=== PATIENT | female | born 1990 | race Two or more races ===

== ENCOUNTER 2017-11-20 12:47 | Inpatient (IN) | payer SELFPAY ==
[2017-11-20] MEDS ORDERED: Atropine/Diphenoxylate 0.025-2.5 MG Tab PO ONE (13:51)
--- NOTE | 2017-11-20 19:02 | PCM.LDHP ---
L&D History of Present Illness - General Date of Service: 11/20/17 Admit Problem/Dx: Patient Status Order with Admit Dx/Problem 11/20/17 13:20 Patient Status [ADT] Routine Admission Diagnosis/Problem Admission Diagnosis/Problem 11/20/17 18:45 Labor Source of Information: Patient, EMS, EMS Notes Reviewed History Limitations: Reports: No Limitations - History of Present Illness Introduction:: Camryn is a 27yo at 38/2 who presents to labor and delivery in active labor. LMP was 02/25/17. CARISSA 12/02/17. She is group B strep negative, has no known allergies, and denies any surgical history. Blood type is O+. She is Rubella immune and negative for Hep B, HIV, Chlamydia, and Gonorrhea. She has received her Tdap and Influenza vaccinations. 1hr Glucose was within normal limits on 09/14/17 at 83mg/dl. Her platelets and BP have been stable throughout her . She does report a history of abnormal PAP smear LSIL which required colposcopy on 07/14/17. Too this point she has received standard care without complications. Present Illness Comments:: She is currently comfortable and desires an epidural. - Related Data Allergies/Adverse Reactions: Allergies Allergy/AdvReac Type Severity Reaction Status Date / Time No Known Allergies Allergy Verified 11/20/17 13:53 Home Medications: Home Meds Multivitamin [Multivitamins] 1 each PO DAILY 04/15/15 [History] . [No Known Home Meds] 06/07/16 [History] Past Medical History - Past Health History Medical/Surgical History: Denies Medical/Surgical History HEENT History: Reports: None Cardiovascular History: Reports: None Respiratory History: Reports: None Gastrointestinal History: Reports: None Genitourinary History: Reports: None [employer] History: Reports: None Musculoskeletal History: Reports: None Neurological History: Reports: None Psychiatric History: Reports: None Endocrine/Metabolic History: Reports: None Hematologic History: Reports: None Immunologic History: Reports: None Oncologic (Cancer) History: Reports: None Dermatologic History: Reports: None - Infectious Disease History Infectious Disease History: Reports: None - Past Surgical History Head Surgeries/Procedures: Reports: None HEENT Surgical History: Reports: None Cardiovascular Surgical History: Reports: None Respiratory Surgical History: Reports: None GI Surgical History: Reports: None Female Surgical History: Reports: None Endocrine Surgical History: Reports: None Neurological Surgical History: Reports: None Musculoskeletal Surgical History: Reports: None Dermatological Surgical History: Reports: None Social & Family History - Family History Cardiac: Reports: Hypertension Other Cardiac Family History: Mother HTN - Tobacco Use Smoking Status *Q: Never Smoker Tobacco Use Within Last Twelve Months: No Second Hand Smoke Exposure: No - Tobacco Core Measures Tobacco Use/Smoking Within Last 30 Days: No - Alcohol Use Alcohol Use History: No - Recreational Drug Use Recreational Drug Use: No Drug Use in Last 12 Months: No H&P Review of Systems - Review of Systems: Review Of Systems: ROS reveals no pertinent complaints other than HPI. General: Reports: No Symptoms HEENT: Reports: No Symptoms Pulmonary: Reports: No Symptoms Cardiovascular: Reports: No Symptoms Gastrointestinal: Reports: No Symptoms Genitourinary: Reports: No Symptoms Musculoskeletal: Reports: No Symptoms Skin: Reports: No Symptoms Psychiatric: Reports: No Symptoms Neurological: Reports: No Symptoms Hematologic/Lymphatic: Reports: No Symptoms Immunologic: Reports: No Symptoms L&D Exam - Exam Exam: See Below - Vital Signs Vital Signs: Last Vital Signs Temp 36.6 C 11/20/17 13:03 Pulse 85 11/20/17 13:03 Resp 20 11/20/17 13:03 BP 120/72 11/20/17 13:03 Pulse Ox Weight: 94.943 kg - OB Specific Fundal Height In cm: 38 Contraction Frequency (min): 2-3min Contraction Intensity: Moderate Movement: Active Heart Tones: Present Heart Tones per Min: 156 - Villasenor Score Villasenor Score Cervix Position: Midposition Villasenor Score Consistency: Soft Villasenor Score Effacement: >80% Villasenor Score Dilation: 3-4 cm Villasenor Score Infant's Station: -3 Villasenor Score Total: 8 - Exam General: Alert, Oriented HEENT: PERRLA, Conjunctiva Clear, EACs Clear, EOMI, Hearing Intact, Mucosa Moist & [place], Nares Patent, Normal Nasal Septum, Posterior Pharynx Clear, TMs Clear Neck: Supple, Trachea Midline Lungs: Clear to Auscultation, Normal Respiratory Effort Cardiovascular: Regular Rate, Regular Rhythm GI/Abdominal Exam: Normal Bowel Sounds, Soft, Non-Tender, No Organomegaly, No Distention, No Abnormal Bruit, No Mass, Pelvis Stable Rectal Exam: Normal Exam, Normal Rectal Tone Genitourinary: Normal external exam, Normal bimanual exam Back Exam: Normal Inspection, Full Range of Motion Extremities: Normal Inspection, Normal Range of Motion, Non-Tender, No Pedal Edema, Normal Capillary Refill Skin: Warm, Dry, Intact Neurological: Cranial Nerves Intact, Reflexes Equal Bilateral Psychiatric: Alert, Normal Affect, Normal Mood - Patient Data Lab Results Last 24 hrs: Laboratory Results - last 24 hr 11/20/17 11/20/17 11/20/17 Range/Units 13:10 13:10 13:35 WBC 8.18 (3.98-10.04) K/mm3 RBC 4.11 (3.98-5.22) M/mm3 Hgb 12.1 (11.2-15.7) gm/L Hct 36.4 (34.1-44.9) % MCV 88.6 (79.4-94.8) fl MCH 29.4 (25.6-32.2) pg MCHC 33.2 (32.2-35.5) g/dl RDW Std Deviation 42.8 (36.4-46.3) fL Plt Count 230 (182-369) K/mm3 MPV 10.1 (9.4-12.3) fl Neut % (Auto) 76.7 H (34.0-71.1) % Lymph % (Auto) 16.3 L (19.3-51.7) % [place] % (Auto) 6.1 (4.7-12.5) % Eos % (Auto) 0.1 L (0.7-5.8) Baso % (Auto) 0.1 (0.1-1.2) % Neut # (Auto) 6.27 H (1.56-6.13) K/mm3 Lymph # (Auto) 1.33 (1.18-3.74) K/mm3 [place] # (Auto) 0.50 H (0.24-0.36) K/mm3 Eos # (Auto) 0.01 L (0.04-0.36) K/mm3 Baso # (Auto) 0.01 (0.01-0.08) K/mm3 Sodium (136-145) mEq/L Potassium (3.5-5.1) mEq/L Chloride (98-107) mEq/L Carbon Dioxide (21-32) mEq/L Anion Gap (5-15) BUN (7-18) mg/dL Creatinine (0.55-1.02) mg/dL Est Cr Clr Drug Dosing mL/min Estimated GFR (MDRD) (>60) mL/min BUN/Creatinine Ratio (14-18) Glucose (74-106) mg/dL Calcium (8.5-10.1) mg/dL Urine Color Yellow (Yellow) Urine Appearance Clear (Clear) Urine pH 7.0 (5.0-8.0) Ur Specific [place] 1.020 (1.005-1.030) Urine Protein Negative (Negative) Urine Glucose (UA) Negative (Negative) Urine Ketones Negative (Negative) Urine Occult Blood Negative (Negative) Urine Nitrite Negative (Negative) Urine Bilirubin Negative (Negative) Urine Urobilinogen 0.2 (0.2-1.0) Ur Leukocyte Esterase Trace H (Negative) Urine RBC 0-5 (0-5) /hpf Urine WBC 0-5 (0-5) /hpf Ur Epithelial Cells 5-10 H (0-5) /hpf Urine Bacteria Moderate H (FEW) /hpf Urine Mucus Not seen (FEW) /hpf Membrane Rupture Negative 11/20/17 Range/Units 13:35 WBC (3.98-10.04) K/mm3 RBC (3.98-5.22) M/mm3 Hgb (11.2-15.7) gm/L Hct (34.1-44.9) % MCV (79.4-94.8) fl MCH (25.6-32.2) pg MCHC (32.2-35.5) g/dl RDW Std Deviation (36.4-46.3) fL Plt Count (182-369) K/mm3 MPV (9.4-12.3) fl Neut % (Auto) (34.0-71.1) % Lymph % (Auto) (19.3-51.7) % [place] % (Auto) (4.7-12.5) % Eos % (Auto) (0.7-5.8) Baso % (Auto) (0.1-1.2) % Neut # (Auto) (1.56-6.13) K/mm3 Lymph # (Auto) (1.18-3.74) K/mm3 [place] # (Auto) (0.24-0.36) K/mm3 Eos # (Auto) (0.04-0.36) K/mm3 Baso # (Auto) (0.01-0.08) K/mm3 Sodium 136 (136-145) mEq/L Potassium 3.8 (3.5-5.1) mEq/L Chloride 105 (98-107) mEq/L Carbon Dioxide 23 (21-32) mEq/L Anion Gap 11.8 (5-15) BUN 6 L (7-18) mg/dL Creatinine 0.5 L (0.55-1.02) mg/dL Est Cr Clr Drug Dosing 139.81 mL/min Estimated GFR (MDRD) > 60 (>60) mL/min BUN/Creatinine Ratio 12.0 L (14-18) Glucose 91 (74-106) mg/dL Calcium 8.4 L (8.5-10.1) mg/dL Urine Color (Yellow) Urine Appearance (Clear) Urine pH (5.0-8.0) Ur Specific [place] (1.005-1.030) Urine Protein (Negative) Urine Glucose (UA) (Negative) Urine Ketones (Negative) Urine Occult Blood (Negative) Urine Nitrite (Negative) Urine Bilirubin (Negative) Urine Urobilinogen (0.2-1.0) Ur Leukocyte Esterase (Negative) Urine RBC (0-5) /hpf Urine WBC (0-5) /hpf Ur Epithelial Cells (0-5) /hpf Urine Bacteria (FEW) /hpf Urine Mucus (FEW) /hpf Membrane Rupture Result Diagrams: 11/20/17 13:35 11/20/17 13:35 - Problem List (1) Labor established SNOMED Code(s): 53523894 ICD Code: SOQ1717 - Status: Acute Current Visit: Yes (2) Labor without complication SNOMED Code(s): 10051051 ICD Code: O80 - ENCOUNTER FOR FULL-TERM UNCOMPLICATED DELIVERY Status: Acute Current Visit: Yes (3) SNOMED Code(s): 37620497 ICD Code: Z33.1 - STATE, INCIDENTAL Status: Acute Current Visit : Yes Qualifiers: Weeks of gestation: 38 weeks Qualified Code(s): Z3A.38 - 38 weeks gestation of Problem List Initiated/Reviewed/Updated: Yes Orders Last 24hrs: Active Orders 24 hr Category Date Time Status Patient Status [ADT] Routine ADT 11/20/17 13:20 Active Non Stress Test [RC] PER UNIT ROUTINE Care 11/20/17 13:20 Active Up ad [place] [RC] ASDIRECTED Care 11/20/17 13:21 Active Vaginal Exam [RC] PRN Care 11/20/17 13:21 Active Vital Signs [RC] PER UNIT ROUTINE Care 11/20/17 13:20 Active Regular Diet [DIET] Diet 11/20/17 Lunch Active Resuscitation Status Routine Resus Stat 11/20/17 13:19 Ordered
[2017-11-20] MEDS ORDERED: Sodium Chloride 0.9% 10 ML Syringe FLUSH PRN (19:13)
[2017-11-20] MEDS ORDERED: Oxytocin/Lactated Ringers 10 UNIT/1,000 ML BAG IV SCH ×2 (19:15→21:15)
[2017-11-20] MEDS: Lactated Ringers 1,000 ML IV SCH ×2 (21:11→21:50)
[2017-11-20] MEDS ORDERED: diphenhydrAMINE 50 MG/ML SDV IVPUSH PRN (21:56)
[2017-11-20] MEDS ORDERED: fentaNYL 100 MCG/2 ML SDV EPIDUR PRN (21:56)
[2017-11-20] MEDS ORDERED: Ondansetron 4 MG/2 ML SDV IVPUSH PRN (21:56)
[2017-11-20] MEDS ORDERED: fentaNYL 100 MCG/2 ML SDV ONE (21:58)
[2017-11-20] MEDS ORDERED: Bupivacaine/fentaNYL/NS 100 ML Bag EPIDUR SCH (22:00)
--- NOTE | 2017-11-20 22:01 | PCM.PREANE ---
Preanesthetic Assessment - Procedure Proposed Procedure: ELOISE - Anesthesia/Transfusion/Family Hx Anesthesia History: No Prior Anesthesia Family History of Anesthesia Reaction: No Transfusion History: No Prior Transfusion(s) - Review of Systems General: No Symptoms Pulmonary: No Symptoms Cardiovascular: No Symptoms Gastrointestinal: No Symptoms, Hematochezia Neurological: No Symptoms Other: Reports: None - Physical Assessment NPO Status Date: 11/20/17 NPO Status Time: 16:00 Respiratory Rate: 20 Vital Signs: Last Vital Signs Temp 36.6 C 11/20/17 13:03 Pulse 85 11/20/17 13:03 Resp 20 11/20/17 13:03 BP 120/72 11/20/17 13:03 Pulse Ox Height: 1.6 m Weight: 94.943 kg ASA Class: 2 Mental Status: Alert & Oriented x3 Airway Class: Mallampati = 1 Dentition: Reports: Normal Dentition Thyro-Mental Finger Breadths: 3 Mouth Opening Finger Breadths: 3 ROM/Head Extension: Full Lungs: Clear to Auscultation, Normal Respiratory Effort Cardiovascular: Regular Rate, Regular Rhythm - Lab Values: Laboratory Last Values WBC 8.18 K/mm3 (3.98-10.04) 11/20/17 13:35 RBC 4.11 M/mm3 (3.98-5.22) 11/20/17 13:35 Hgb 12.1 gm/L (11.2-15.7) 11/20/17 13:35 Hct 36.4 % (34.1-44.9) 11/20/17 13:35 MCV 88.6 fl (79.4-94.8) 11/20/17 13:35 MCH 29.4 pg (25.6-32.2) 11/20/17 13:35 MCHC 33.2 g/dl (32.2-35.5) 11/20/17 13:35 RDW Std Deviation 42.8 fL (36.4-46.3) 11/20/17 13:35 Plt Count 230 K/mm3 (182-369) 11/20/17 13:35 MPV 10.1 fl (9.4-12.3) 11/20/17 13:35 Neut % (Auto) 76.7 % (34.0-71.1) H 11/20/17 13:35 Lymph % (Auto) 16.3 % (19.3-51.7) L 11/20/17 13:35 [place] % (Auto) 6.1 % (4.7-12.5) 11/20/17 13:35 Eos % (Auto) 0.1 (0.7-5.8) L 11/20/17 13:35 Baso % (Auto) 0.1 % (0.1-1.2) 11/20/17 13:35 Neut # (Auto) 6.27 K/mm3 (1.56-6.13) H 11/20/17 13:35 Lymph # (Auto) 1.33 K/mm3 (1.18-3.74) 11/20/17 13:35 [place] # (Auto) 0.50 K/mm3 (0.24-0.36) H 11/20/17 13:35 Eos # (Auto) 0.01 K/mm3 (0.04-0.36) L 11/20/17 13:35 Baso # (Auto) 0.01 K/mm3 (0.01-0.08) 11/20/17 13:35 Sodium 136 mEq/L (136-145) 11/20/17 13:35 Potassium 3.8 mEq/L (3.5-5.1) 11/20/17 13:35 Chloride 105 mEq/L (98-107) 11/20/17 13:35 Carbon Dioxide 23 mEq/L (21-32) 11/20/17 13:35 Anion Gap 11.8 (5-15) 11/20/17 13:35 BUN 6 mg/dL (7-18) L 11/20/17 13:35 Creatinine 0.5 mg/dL (0.55-1.02) L 11/20/17 13:35 Est Cr Clr Drug Dosing 139.81 mL/min 11/20/17 13:35 Estimated GFR (MDRD) > 60 mL/min (>60) 11/20/17 13:35 BUN/Creatinine Ratio 12.0 (14-18) L 11/20/17 13:35 Glucose 91 mg/dL (74-106) 11/20/17 13:35 Calcium 8.4 mg/dL (8.5-10.1) L 11/20/17 13:35 Urine Color Yellow (Yellow) 11/20/17 13:10 Urine Appearance Clear (Clear) 11/20/17 13:10 Urine pH 7.0 (5.0-8.0) 11/20/17 13:10 Ur Specific [place] 1.020 (1.005-1.030) 11/20/17 13:10 Urine Protein Negative (Negative) 11/20/17 13:10 Urine Glucose (UA) Negative (Negative) 11/20/17 13:10 Urine Ketones Negative (Negative) 11/20/17 13:10 Urine Occult Blood Negative (Negative) 11/20/17 13:10 Urine Nitrite Negative (Negative) 11/20/17 13:10 Urine Bilirubin Negative (Negative) 11/20/17 13:10 Urine Urobilinogen 0.2 (0.2-1.0) 11/20/17 13:10 Ur Leukocyte Esterase Trace (Negative) H 11/20/17 13:10 Urine RBC 0-5 /hpf (0-5) 11/20/17 13:10 Urine WBC 0-5 /hpf (0-5) 11/20/17 13:10 Ur Epithelial Cells 5-10 /hpf (0-5) H 11/20/17 13:10 Urine Bacteria Moderate /hpf (FEW) H 11/20/17 13:10 Urine Mucus Not seen /hpf (FEW) 11/20/17 13:10 Membrane Rupture Negative 11/20/17 13:10 - Allergies Allergies/Adverse Reactions: Allergies Allergy/AdvReac Type Severity Reaction Status Date / Time No Known Allergies Allergy Verified 11/20/17 13:53 - Blood Blood Available: No Product(s) Available: None - Anesthesia Plan Pre-Op Medication Ordered: None - Acknowledgements Anesthesia Type Planned: Epidural Pt an Appropriate Candidate for the Planned Anesthesia: Yes Alternatives and Risks of Anesthesia Discussed w Pt/Guardian: Yes Pt/Guardian Understands and Agrees with Anesthesia Plan: Yes PreAnesthesia Questionnaire - Past Health History Medical/Surgical History: Denies Medical/Surgical History HEENT History: Reports: None Cardiovascular History: Reports: None Respiratory History: Reports: None Gastrointestinal History: Reports: None Genitourinary History: Reports: None Other Genitourinary History: history of chlamydia 2010 [employer]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 Other OB/BYN History: abnormal PAP Musculoskeletal History: Reports: None Neurological History: Reports: None Psychiatric History: Reports: None Endocrine/Metabolic History: Reports: None Hematologic History: Reports: None Immunologic History: Reports: None Oncologic (Cancer) History: Reports: None Dermatologic History: Reports: None - Infectious Disease History Infectious Disease History: Reports: None - Past Surgical History Head Surgeries/Procedures: Reports: None HEENT Surgical History: Reports: None Cardiovascular Surgical History: Reports: None Respiratory Surgical History: Reports: None GI Surgical History: Reports: None Female Surgical History: Reports: None Endocrine Surgical History: Reports: None Neurological Surgical History: Reports: None Musculoskeletal Surgical History: Reports: None Dermatological Surgical History: Reports: None - SUBSTANCE USE Smoking Status *Q: Never Smoker Tobacco Use Within Last Twelve Months: No Second Hand Smoke Exposure: No Recreational Drug Use History: No - HOME MEDS Home Medications: Home Meds Multivitamin [Multivitamins] 1 each PO DAILY 04/15/15 [History] . [No Known Home Meds] 06/07/16 [History] - CURRENT (IN HOUSE) MEDS Current Meds: Current Medications Lactated Ringer's (Ringers, Lactated) 1,000 mls @ 100 mls/hr IV ASDIRECTED YONG Last Admin: 11/20/17 21:50 Dose: 999 mls/hr Oxytocin/Lactated Ringer's (Pitocin In Lr 10 Units/1,000 Ml) 10 unit in 1,000 mls @ 500 mls/hr IV TITRATE YONG PRN Reason: Protocol Oxytocin/Lactated Ringer's (Pitocin In Lr 10 Units/1,000 Ml) 10 unit in 1,000 mls @ 12 mls/hr IV TITRATE YONG; 2 MUNITS/MIN PRN Reason: Protocol Last Titration: 11/20/17 21:50 Dose: 4 munits/min, 24 mls/hr Sodium Chloride (Saline Flush) 10 ml FLUSH ASDIRECTED PRN PRN Reason: Keep Vein Open Discontinued Medications Diphenoxylate HCl/Atropine (Lomotil 0.025-2.5 Mg) 1 tab PO ONETIME ONE Stop: 11/20/17 13:52 Last Admin: 11/20/17 14:02 Dose: 1 tab
--- NOTE | 2017-11-21 02:09 | PCM.SN ---
- Free Text/Narrative Note: Camryn is a 27-year-old 5 now para 5005 female who was admitted at approximately 1800 hrs. on 01/18/2018 in early labor having spontaneously changed her cervix from 1-2 cm dilation to 3-4 cm dilation. She had been monitored since approximately 1400 hrs. She is admitted and monitored thereafter. Short time later artificial rupture membranes was undertaken and patient progressed to complete cervical dilation by approximately 0130 hrs. on . Some Pitocin augmentation was used later in the labor to facilitate increase in contraction frequency. At 0142 hrs. on 01/19/2018 the patient delivered a viable, prajapati, male infant with Apgars of 9 and 9, weight of 2980 g (6 pounds 9.1 ounces), 19 inches in length, in a direct occiput anterior position. The perineum was intact. The baby was placed on mom's abdomen, the cord was clamped 2. The father of the baby cut the cord. Cord blood was obtained. No suturing was necessary. The placenta delivered at 0145 hrs. in a Martinez presentation, appeared intact and complete and was discarded per patient desire. Pitocin was administered after the delivery of the baby to facilitate increase in uterine tone and reduce risk of bleeding. Estimated blood loss was 300 mL. The patient plans to bottlefeed. Condition: Good
[2017-11-21] MEDS ORDERED: Docusate Sodium 100 MG Cap PO PRN (02:12)
[2017-11-21] MEDS ORDERED: Witch Hazel Medicated Pads 100/Jar TOP PRN (02:12)
[2017-11-21] MEDS ORDERED: Benzocaine/Menthol 20%-0.5% Spray 56 GM Canister TOP PRN (02:12)
[2017-11-21] MEDS ORDERED: Acetaminophen 325 MG Tab PO PRN (02:12)
[2017-11-21] MEDS ORDERED: Lanolin 100% Cream 7 GM Tube TOP PRN (02:12)
[2017-11-21] MEDS: Ibuprofen 600 MG Tab PO PRN ×3 (02:33→19:21)
--- NOTE | 2017-11-21 08:19 | PCM.PN ---
- General Info Date of Service: 11/21/17 Admission Dx/Problem (Free Text): Routine Follow up Subjective Update: Camryn reports that she is doing well though she does say that she has not slept much up to this point. She does note that there is still some numbness in her left lower leg. She was educated that this is from the epidural and should go away. She does state that she has been able to urinate. She states that her pain is well controlled and has no other complaints. Functional Status: Reports: Pain Controlled, Tolerating Diet, Ambulating, Urinating - Review of Systems General: Reports: No Symptoms HEENT: Reports: No Symptoms Pulmonary: Reports: No Symptoms Cardiovascular: Reports: No Symptoms Gastrointestinal: Reports: No Symptoms Genitourinary: Reports: No Symptoms Skin: Reports: No Symptoms Neurological: Reports: Numbness Psychiatric: Reports: No Symptoms Systems Review Comment:: Numbness in left lower leg - Patient Data Vitals - Most Recent: Last Vital Signs Temp 36.6 C 11/20/17 13:03 Pulse 95 11/21/17 03:31 Resp 20 11/20/17 22:00 BP 119/61 11/21/17 03:31 Pulse Ox Weight - Most Recent: 94.943 kg I&O - Last 24 Hours: Intake & Output 11/20/17 11/21/17 11/21/17 22:59 06:59 14:59 Intake Total 1000 1975 Output Total 400 Balance 1000 1575 Lab Results Last 24 Hours: Laboratory Results - last 24 hr 11/20/17 11/20/17 11/20/17 Range/Units 13:10 13:10 13:35 WBC 8.18 (3.98-10.04) K/mm3 RBC 4.11 (3.98-5.22) M/mm3 Hgb 12.1 (11.2-15.7) gm/L Hct 36.4 (34.1-44.9) % MCV 88.6 (79.4-94.8) fl MCH 29.4 (25.6-32.2) pg MCHC 33.2 (32.2-35.5) g/dl RDW Std Deviation 42.8 (36.4-46.3) fL Plt Count 230 (182-369) K/mm3 MPV 10.1 (9.4-12.3) fl Neut % (Auto) 76.7 H (34.0-71.1) % Lymph % (Auto) 16.3 L (19.3-51.7) % [place] % (Auto) 6.1 (4.7-12.5) % Eos % (Auto) 0.1 L (0.7-5.8) Baso % (Auto) 0.1 (0.1-1.2) % Neut # (Auto) 6.27 H (1.56-6.13) K/mm3 Lymph # (Auto) 1.33 (1.18-3.74) K/mm3 [place] # (Auto) 0.50 H (0.24-0.36) K/mm3 Eos # (Auto) 0.01 L (0.04-0.36) K/mm3 Baso # (Auto) 0.01 (0.01-0.08) K/mm3 Sodium (136-145) mEq/L Potassium (3.5-5.1) mEq/L Chloride (98-107) mEq/L Carbon Dioxide (21-32) mEq/L Anion Gap (5-15) BUN (7-18) mg/dL Creatinine (0.55-1.02) mg/dL Est Cr Clr Drug Dosing mL/min Estimated GFR (MDRD) (>60) mL/min BUN/Creatinine Ratio (14-18) Glucose (74-106) mg/dL Calcium (8.5-10.1) mg/dL Urine Color Yellow (Yellow) Urine Appearance Clear (Clear) Urine pH 7.0 (5.0-8.0) Ur Specific [place] 1.020 (1.005-1.030) Urine Protein Negative (Negative) Urine Glucose (UA) Negative (Negative) Urine Ketones Negative (Negative) Urine Occult Blood Negative (Negative) Urine Nitrite Negative (Negative) Urine Bilirubin Negative (Negative) Urine Urobilinogen 0.2 (0.2-1.0) Ur Leukocyte Esterase Trace H (Negative) Urine RBC 0-5 (0-5) /hpf Urine WBC 0-5 (0-5) /hpf Ur Epithelial Cells 5-10 H (0-5) /hpf Urine Bacteria Moderate H (FEW) /hpf Urine Mucus Not seen (FEW) /hpf Membrane Rupture Negative 11/20/17 Range/Units 13:35 WBC (3.98-10.04) K/mm3 RBC (3.98-5.22) M/mm3 Hgb (11.2-15.7) gm/L Hct (34.1-44.9) % MCV (79.4-94.8) fl MCH (25.6-32.2) pg MCHC (32.2-35.5) g/dl RDW Std Deviation (36.4-46.3) fL Plt Count (182-369) K/mm3 MPV (9.4-12.3) fl Neut % (Auto) (34.0-71.1) % Lymph % (Auto) (19.3-51.7) % [place] % (Auto) (4.7-12.5) % Eos % (Auto) (0.7-5.8) Baso % (Auto) (0.1-1.2) % Neut # (Auto) (1.56-6.13) K/mm3 Lymph # (Auto) (1.18-3.74) K/mm3 [place] # (Auto) (0.24-0.36) K/mm3 Eos # (Auto) (0.04-0.36) K/mm3 Baso # (Auto) (0.01-0.08) K/mm3 Sodium 136 (136-145) mEq/L Potassium 3.8 (3.5-5.1) mEq/L Chloride 105 (98-107) mEq/L Carbon Dioxide 23 (21-32) mEq/L Anion Gap 11.8 (5-15) BUN 6 L (7-18) mg/dL Creatinine 0.5 L (0.55-1.02) mg/dL Est Cr Clr Drug Dosing 139.81 mL/min Estimated GFR (MDRD) > 60 (>60) mL/min BUN/Creatinine Ratio 12.0 L (14-18) Glucose 91 (74-106) mg/dL Calcium 8.4 L (8.5-10.1) mg/dL Urine Color (Yellow) Urine Appearance (Clear) Urine pH (5.0-8.0) Ur Specific [place] (1.005-1.030) Urine Protein (Negative) Urine Glucose (UA) (Negative) Urine Ketones (Negative) Urine Occult Blood (Negative) Urine Nitrite (Negative) Urine Bilirubin (Negative) Urine Urobilinogen (0.2-1.0) Ur Leukocyte Esterase (Negative) Urine RBC (0-5) /hpf Urine WBC (0-5) /hpf Ur Epithelial Cells (0-5) /hpf Urine Bacteria (FEW) /hpf Urine Mucus (FEW) /hpf Membrane Rupture Med Orders - Current: Current Medications Acetaminophen (Tylenol) 650 mg PO Q4H PRN PRN Reason: mild pain or fever Benzocaine/Menthol (Dermoplast Pain Relief [place]) 0 gm TOP ASDIRECTED PRN PRN Reason: Perineal Comfort Measure Last Admin: 11/21/17 02:34 Dose: 1 applic Docusate Sodium (Colace) 100 mg PO BID PRN PRN Reason: Constipation Emollient Ointment (Lansinoh Hpa) 0 gm TOP ASDIRECTED PRN PRN Reason: Sore Nipples Ibuprofen (Motrin) 600 mg PO Q4H PRN PRN Reason: Mild pain or fever Last Admin: 11/21/17 02:33 Dose: 600 mg Prenat Multivit/[place]/Iron/Folic Ac ( Plus Iron) 1 each PO DAILY [facility] Maria Dolores Silva (Tucks) 1 pad TOP ASDIRECTED PRN PRN Reason: Hemorrhoid pain Last Admin: 11/21/17 02:34 Dose: 1 applic Discontinued Medications Diphenhydramine HCl (Benadryl) 25 mg IVPUSH Q6H PRN PRN Reason: Pruritis Diphenoxylate HCl/Atropine (Lomotil 0.025-2.5 Mg) 1 tab PO ONETIME ONE Stop: 11/20/17 13:52 Last Admin: 11/20/17 14:02 Dose: 1 tab Fentanyl (Sublimaze) 100 mcg EPIDUR Q3H PRN PRN Reason: Pain Last Admin: 11/20/17 22:26 Dose: 100 mcg Fentanyl (Sublimaze) Confirm Administered Dose 100 mcg .ROUTE .STK-MED ONE Stop: 11/20/17 21:59 Last Admin: 11/20/17 22:09 Dose: Not Given Fentanyl/Bupivacaine HCl (Fentanyl/Bupivacaine/Ns 2 Mcg-0.125% 100 Ml) 100 ml EPIDUR ASDIRECTED [facility] Last Admin: 11/20/17 22:25 Dose: 100 ml Lactated Ringer's (Ringers, Lactated) 1,000 mls @ 100 mls/hr IV ASDIRECTED YONG Last Infusion: 11/20/17 22:37 Dose: 100 mls/hr Oxytocin/Lactated Ringer's (Pitocin In Lr 10 Units/1,000 Ml) 10 unit in 1,000 mls @ 500 mls/hr IV TITRATE YONG PRN Reason: Protocol Oxytocin/Lactated Ringer's (Pitocin In Lr 10 Units/1,000 Ml) 10 unit in 1,000 mls @ 12 mls/hr IV TITRATE YONG; 2 MUNITS/MIN PRN Reason: Protocol Last Titration: 11/21/17 01:43 Dose: 0 munits/min, 0 mls/hr Ondansetron HCl (Zofran) 4 mg IVPUSH ONETIME PRN PRN Reason: Nausea/Vomiting Sodium Chloride (Saline Flush) 10 ml FLUSH ASDIRECTED PRN PRN Reason: Keep Vein Open - Exam General: Alert, Oriented HEENT: Pupils Equal, Pupils Reactive, EOMI, Mucous Membr. Moist/[place] Neck: Supple Lungs: Clear to Auscultation, Normal Respiratory Effort Cardiovascular: Regular Rate, Regular Rhythm GI/Abdominal Exam: Normal Bowel Sounds, Soft, Non-Tender, No Organomegaly, No Distention, No Abnormal Bruit, No Mass, Pelvis Stable (Female) Exam: Normal External Exam, Normal Speculum Exam, Normal Bimanual Exam Back Exam: Normal Inspection, Full Range of Motion Extremities: Normal Inspection, Normal Range of Motion, Non-Tender, No Pedal Edema, Normal Capillary Refill Skin: Warm, Dry, Intact Wound/Incisions: Healing Well Neurological: No New Focal Deficit Psy/Mental Status: Alert, Normal Affect, Normal Mood Physical Findings Comments:: mild numbness in left lower leg residual from epidural - Problem List & Annotations (1) Labor established SNOMED Code(s): 93337491 Code(s): CRG6697 - Status: Acute Current Visit: No (2) Labor without complication SNOMED Code(s): 58341772 Code(s): O80 - ENCOUNTER FOR FULL-TERM UNCOMPLICATED DELIVERY Status: Acute Current Visit: No (3) SNOMED Code(s): 06979895 Code(s): Z33.1 - STATE, INCIDENTAL Status: Acute Current Visit: No Qualifiers: Weeks of gestation: 38 weeks Qualified Code(s): Z3A.38 - 38 weeks gestation of (4) Routine follow-up SNOMED Code(s): 648582277 Code(s): Z39.2 - ENCOUNTER FOR ROUTINE FOLLOW-UP Status: Acute Current Visit: Yes - Problem List Review Problem List Initiated/Reviewed/Updated: Yes - Assessment Assessment:: Routine follow up - Plan Plan:: Continue to monitor per floor protocol
[2017-11-21] MEDS: Prenatal Multivitamin with Calcium/Folic Acid/Iron Tab PO SCH (09:17)
--- NOTE | 2017-11-21 12:51 | PCM48HPAN ---
Post Anesthesia Note - EVALUATION WITHIN 48HRS OF ANESTHETIC Vital Signs in Normal Range: Yes Patient Participated in Evaluation: Yes Respiratory Function Stable: Yes Airway Patent: Yes Cardiovascular Function Stable: Yes Hydration Status Stable: Yes Pain Control Satisfactory: Yes Nausea and Vomiting Control Satisfactory: Yes Mental Status Recovered: Yes
[2017-11-21] MEDS ORDERED: Bupivacaine 0.25% 10 ML SDV ONE (22:22)
[2017-11-22] MEDS: Ibuprofen 600 MG Tab PO PRN ×2 (00:06→04:15)
--- NOTE | 2017-11-22 08:58 | PCM.DCSUM1 ---
Discharge Summary - Hospital Course Free Text/Narrative:: Camryn is a 27-year-old 5 now para 5005 female who was admitted at approximately 1800 hrs. on 01/18/2018 in early labor having spontaneously changed her cervix from 1-2 cm dilation to 3-4 cm dilation. She had been monitored since approximately 1400 hrs. She is admitted and monitored thereafter. Short time later artificial rupture membranes was undertaken and patient progressed to complete cervical dilation by approximately 0130 hrs. on . Some Pitocin augmentation was used later in the labor to facilitate increase in contraction frequency. At 0142 hrs. on 01/19/2018 the patient delivered a viable, prajapati, male with Apgars of 9 and 9, weight of 2980 g (6 pounds 9.1 ounces), 19 inches in length, in a direct occiput anterior position. The perineum was intact. The baby was placed on mom's abdomen, the cord was clamped 2. The father of the baby cut the cord. Cord blood was obtained. No suturing was necessary. The placenta delivered at 0145 hrs. in a [place] presentation, appeared intact and complete and was discarded per patient desire. Pitocin was administered after the delivery of the baby to facilitate increase in uterine tone and reduce risk of bleeding. Estimated blood loss was 300 mL. The patient plans to bottlefeed. patient is doing well. She is ambulatory and well, bottle feeding. She is voiding well. She desires discharge home. - Discharge Data Discharge Date: 11/22/17 Discharge Disposition: DC/Tfer to Hospice - Home 50 Condition: Good - Patient Instructions Diet: Regular Diet as Tolerated Activity: As Tolerated (No intercourse tampons until bleeding stops.) Driving: May Drive Today Showering/Bathing: May Shower Showering/Bathing, Other: May take a bath Notify Provider of: Fever, Increased Pain, Swelling and Redness, Nausea and/or Vomiting - Discharge Plan Home Medications: Home Meds Acetaminophen [Tylenol] 650 mg PO Q4H PRN tablet 11/22/17 [Rx] Ibuprofen [IJD: Ibuprofen] 600 mg PO Q4H PRN tablet 11/22/17 [Rx] Referrals: Daisha Bowser MD [Primary Care Provider] - (Return to clinic Dr. Bowser6 weeks) - Discharge Summary/Plan Comment DC Time >30 min.: No Discharge Summary/Plan Comment: Discharge instructions: 1. Discharge home 2. Diet, activity and follow-up discussed with patient. Recommend nursing diet with increased calories and calcium. 3. Precautions given concern increased pain, bleeding, temperature, signs/ symptoms of DVT/PE. 4. Medications per home medication was printed, discussed with and given to the patient. 5. Return to clinic[facility]Dr. Edgar at [facility] in 6 weeks. Diagnosis: Term -delivered Condition: Good - Patient Data Vitals - Most Recent: Last Vital Signs Temp 36.4 C 11/22/17 04:10 Pulse 82 11/22/17 04:10 Resp 14 11/22/17 04:10 BP 136/86 11/22/17 04:10 Pulse Ox 100 11/22/17 04:10 Weight - Most Recent: 94.943 kg I&O - Last 24 hours: Intake & Output 11/21/17 11/22/17 11/22/17 22:59 06:59 14:59 Intake Total 180 Balance 180 Lab Results - Last 24 hrs: Laboratory Results - last 24 hr 11/22/17 Range/Units 06:00 WBC 8.23 (3.98-10.04) K/mm3 RBC 3.56 L (3.98-5.22) M/mm3 Hgb 10.3 L (11.2-15.7) gm/L Hct 32.0 L (34.1-44.9) % MCV 89.9 (79.4-94.8) fl MCH 28.9 (25.6-32.2) pg MCHC 32.2 (32.2-35.5) g/dl RDW Std Deviation 43.8 (36.4-46.3) fL Plt Count 206 (182-369) K/mm3 MPV 10.2 (9.4-12.3) fl Med Orders - Current: Current Medications Acetaminophen (Tylenol) 650 mg PO Q4H PRN PRN Reason: mild pain or fever Last Admin: 11/21/17 13:06 Dose: 650 mg Benzocaine/Menthol (Dermoplast Pain Relief [place]) 0 gm TOP ASDIRECTED PRN PRN Reason: Perineal Comfort Measure Last Admin: 11/21/17 02:34 Dose: 1 applic Docusate Sodium (Colace) 100 mg PO BID PRN PRN Reason: Constipation Emollient Ointment (Lansinoh Hpa) 0 gm TOP ASDIRECTED PRN PRN Reason: Sore Nipples Ibuprofen (Motrin) 600 mg PO Q4H PRN PRN Reason: Mild pain or fever Last Admin: 11/22/17 04:15 Dose: 600 mg Prenat Multivit/[place]/Iron/Folic Ac ( Plus Iron) 1 each PO DAILY YONG Last Admin: 11/21/17 09:17 Dose: 1 each Witch Shira (Tucks) 1 pad TOP ASDIRECTED PRN PRN Reason: Hemorrhoid pain Last Admin: 11/21/17 02:34 Dose: 1 applic Discontinued Medications Diphenhydramine HCl (Benadryl) 25 mg IVPUSH Q6H PRN PRN Reason: Pruritis Diphenoxylate HCl/Atropine (Lomotil 0.025-2.5 Mg) 1 tab PO ONETIME ONE Stop: 11/20/17 13:52 Last Admin: 11/20/17 14:02 Dose: 1 tab Fentanyl (Sublimaze) 100 mcg EPIDUR Q3H PRN PRN Reason: Pain Last Admin: 11/20/17 22:26 Dose: 100 mcg Fentanyl (Sublimaze) Confirm Administered Dose 100 mcg .ROUTE .STK-MED ONE Stop: 11/20/17 21:59 Last Admin: 11/20/17 22:09 Dose: Not Given Fentanyl/Bupivacaine HCl (Fentanyl/Bupivacaine/Ns 2 Mcg-0.125% 100 Ml) 100 ml EPIDUR ASDIRECTED YONG Last Admin: 11/20/17 22:25 Dose: 100 ml Lactated Ringer's (Ringers, Lactated) 1,000 mls @ 100 mls/hr IV ASDIRECTED YONG Last Infusion: 11/20/17 22:37 Dose: 100 mls/hr Oxytocin/Lactated Ringer's (Pitocin In Lr 10 Units/1,000 Ml) 10 unit in 1,000 mls @ 500 mls/hr IV TITRATE YONG PRN Reason: Protocol Oxytocin/Lactated Ringer's (Pitocin In Lr 10 Units/1,000 Ml) 10 unit in 1,000 mls @ 12 mls/hr IV TITRATE YONG; 2 MUNITS/MIN PRN Reason: Protocol Last Titration: 11/21/17 01:43 Dose: 0 munits/min, 0 mls/hr Ondansetron HCl (Zofran) 4 mg IVPUSH ONETIME PRN PRN Reason: Nausea/Vomiting Sodium Chloride (Saline Flush) 10 ml FLUSH ASDIRECTED PRN PRN Reason: Keep Vein Open *Q Meaningful Use (DIS) - VTE *Q VTE Criteria *Q: - Stroke *Q Stroke Criteria *Q: - AMI *Q AMI Criteria *Q:
[2017-11-22 09:49] VITALS: BP 120/62
[2017-11-22] MEDS: Prenatal Multivitamin with Calcium/Folic Acid/Iron Tab PO SCH (11:03)
== END 2017-11-22 10:40 | disposition hospice, home (50) | DRG 775 ==
LOC: JD.OBCHECK 12:47 → JD.OB 12:47 → JD.OBCHECK 19:13 → OBSVTOIN 11-21 01:42 → JD.OB 11-21 02:00
PROVIDERS: ADMIT Obstetrics & Gynecology; ATTEND Obstetrics & Gynecology
PROC: 10E0XZZ Delivery of Products of Conception, External Approach (ICD-10-PCS; principal; 2017-11-21)
PROC: 10907ZC Drainage of Amniotic Fluid, Therapeutic from Products of Conception, Via Natural or Artificial Opening (ICD-10-PCS; 2017-11-21)
PROC: 00HU33Z Insertion of Infusion Device into Spinal Canal, Percutaneous Approach (ICD-10-PCS; 2017-11-21)
PROC: 3E0R3BZ Introduction of Anesthetic Agent into Spinal Canal, Percutaneous Approach (ICD-10-PCS; 2017-11-21)
DX: O80 Encounter for full-term uncomplicated delivery (principal); Z3A.38 38 weeks gestation of pregnancy; Z37.0 Single live birth
CPT/HCPCS: 36415; 51702; 59409; 80048; 81001; 84112; 85025; 85027; A9270-GY; J2590; J3010; J7120

== ENCOUNTER 2019-01-22 00:05 | Observation (INO) | payer BC ==
[2019-01-22 00:37] VITALS: BP 132/70
[2019-01-22] MEDS ORDERED: Lactated Ringers 1,000 ML IV SCH (01:00)
[2019-01-22] MEDS ORDERED: Lidocaine 1% 50 ML MDV INJECT ONE (02:13)
[2019-01-22] MEDS ORDERED: Ondansetron 4 MG/2 ML SDV IVPUSH PRN (02:13)
[2019-01-22] MEDS ORDERED: Calcium Carbonate 500 MG Tab.Chew PO PRN (02:13)
[2019-01-22] MEDS ORDERED: Sodium Chloride 0.9% 10 ML Syringe FLUSH PRN (02:13)
[2019-01-22] MEDS ORDERED: Nalbuphine 20 MG/ML 1 ML Syringe IVPUSH PRN (02:13)
[2019-01-22] MEDS ORDERED: Oxytocin/Lactated Ringers 10 UNIT/1,000 ML BAG IV SCH (02:15)
--- NOTE | 2019-01-22 07:45 | PCM.SN ---
- Free Text/Narrative Note: 0745 S: Patient is a 28 y/o at 37 0/7 wks who presents for concerns of contractions. Started yesterday PM. Got to L&D around midnight. Initially marysol and being able to be picked up on monitor. Able, however, to fall asleep and rest comfortably in the early AM hours. Doing well now. Notes a little bit of tightening. O: Gen: NAD Ab: Soft, non tender Ext: No edema FHT: 130, moderate variability, + accelerations, one isolated variable at 0415 - remainder of 8 hours of tracing without deceleration TOCO: This am quiet SVE: For my exam external os is maybe open to 3 cm (last nursing exam notes 3-4 on cervix check), however, difficulty reaching all the way up to internal os. Internal os seems to be 2.5 / 25% / -2 A/P: Reviewed with patient that would not want to augment labor at this time given gestational age and that she is without medical complication. It is challenging that she lives 1.5 hours from hospital, however, I would recommend either continued monitoring or discharge to home if she feels comfortable. She would like discharge to home. Asked her to return with any increase in contractions. Carmina Patten MD
== END 2019-01-22 07:57 | disposition home or self-care (01) ==
LOC: JD.OBCHECK 00:05 → JD.OB 00:05 → JD.OBCHECK 02:13 → JD.OB 02:14
PROVIDERS: ADMIT Obstetrics & Gynecology; ATTEND Obstetrics & Gynecology
DX: O47.1 False labor at or after 37 completed weeks of gestation (principal); Z3A.37 37 weeks gestation of pregnancy
CPT/HCPCS: 36415; 59025; 85025; 86592; 86850; 86900; 86901; G0378

== ENCOUNTER 2019-01-28 17:12 | Inpatient (IN) | payer BC ==
[2019-01-28] MEDS ORDERED: Nalbuphine 20 MG/ML 1 ML Syringe IVPUSH PRN (19:04)
[2019-01-28] MEDS ORDERED: Sodium Chloride 0.9% 10 ML Syringe FLUSH PRN (19:04)
[2019-01-28] MEDS ORDERED: Oxytocin/Lactated Ringers 10 UNIT/1,000 ML BAG IV SCH ×2 (19:15)
[2019-01-28] MEDS: Lactated Ringers 1,000 ML IV SCH ×2 (19:28→22:28)
[2019-01-28] MEDS ORDERED: ePHEDrine 50 MG/ML SDV IVPUSH PRN (20:01)
[2019-01-28] MEDS ORDERED: Ondansetron 4 MG/2 ML SDV IVPUSH PRN (20:01)
[2019-01-28] MEDS ORDERED: fentaNYL/Bupivacaine-NS 2 MCG/ML-0.125%/PF 100 ML Bag EPIDUR PRN (20:01)
[2019-01-28] MEDS ORDERED: fentaNYL 100 MCG/2 ML SDV EPIDUR PRN (20:01)
--- NOTE | 2019-01-28 20:01 | PCM.PREANE ---
Preanesthetic Assessment - Anesthesia/Transfusion/Family Hx Anesthesia History: Prior Anesthesia Without Reaction (just epidural.) Family History of Anesthesia Reaction: No Transfusion History: No Prior Transfusion(s) Intubation History: Unknown - Review of Systems General: No Symptoms Pulmonary: No Symptoms Cardiovascular: No Symptoms Gastrointestinal: No Symptoms Neurological: No Symptoms Other: Reports: None - Physical Assessment NPO Status Date: 01/28/19 NPO Status Time: 20:00 Pulse: 88 O2 Sat by Pulse Oximetry: 99 Respiratory Rate: 16 Blood Pressure: 118/65 Temperature: 37.3 C Vital Signs: Last Vital Signs Temp 37.3 C 01/28/19 17:36 Pulse 88 01/28/19 17:36 Resp 16 01/28/19 17:36 BP 118/65 01/28/19 17:36 Pulse Ox Height: 1.57 m Weight: 90.265 kg ASA Class: 2 Mental Status: Alert & Oriented x3 Airway Class: Mallampati = 2 Dentition: Reports: Normal Dentition, Caries Thyro-Mental Finger Breadths: 3 Mouth Opening Finger Breadths: 3 ROM/Head Extension: Full Lungs: Clear to Auscultation, Normal Respiratory Effort Cardiovascular: Regular Rate, Regular Rhythm, No Murmurs - Lab Values: Laboratory Last Values WBC 9.48 K/mm3 (3.98-10.04) 01/28/19 19:19 RBC 4.02 M/mm3 (3.98-5.22) 01/28/19 19:19 Hgb 12.3 gm/L (11.2-15.7) 01/28/19 19:19 Hct 36.5 % (34.1-44.9) 01/28/19 19:19 MCV 90.8 fl (79.4-94.8) 01/28/19 19:19 MCH 30.6 pg (25.6-32.2) 01/28/19 19:19 MCHC 33.7 g/dl (32.2-35.5) 01/28/19 19:19 RDW Std Deviation 43.6 fL (36.4-46.3) 01/28/19 19:19 Plt Count 208 K/mm3 (182-369) 01/28/19 19:19 MPV 9.8 fl (9.4-12.3) 01/28/19 19:19 Membrane Rupture Negative 01/28/19 17:30 Above labs reviewed and noted and within acceptable ranges to proceed with epidural if desired. - Allergies Allergies/Adverse Reactions: Allergies Allergy/AdvReac Type Severity Reaction Status Date / Time No Known Allergies Allergy Verified 01/22/19 00:37 - Anesthesia Plan Pre-Op Medication Ordered: None - Acknowledgements Anesthesia Type Planned: Epidural Pt an Appropriate Candidate for the Planned Anesthesia: Yes Alternatives and Risks of Anesthesia Discussed w Pt/Guardian: Yes Pt/Guardian Understands and Agrees with Anesthesia Plan: Yes PreAnesthesia Questionnaire - Past Health History Medical/Surgical History: Denies Medical/Surgical History HEENT History: Reports: None Cardiovascular History: Reports: None Respiratory History: Reports: None Gastrointestinal History: Reports: None Genitourinary History: Reports: None Other Genitourinary History: history of chlamydia 2009 [employer] History: Reports: , Other (See Below) Other OB/BYN History: abnormal PAP, possible HPV Musculoskeletal History: Reports: None Neurological History: Reports: None Psychiatric History: Reports: None Endocrine/Metabolic History: Reports: None Hematologic History: Reports: None Immunologic History: Reports: None Oncologic (Cancer) History: Reports: None Dermatologic History: Reports: None - Infectious Disease History Infectious Disease History: Reports: Human Papilloma Virus (HPV) - Past Surgical History Head Surgeries/Procedures: Reports: None HEENT Surgical History: Reports: None Cardiovascular Surgical History: Reports: None Respiratory Surgical History: Reports: None GI Surgical History: Reports: None Female Surgical History: Reports: None Endocrine Surgical History: Reports: None Neurological Surgical History: Reports: None Musculoskeletal Surgical History: Reports: None Dermatological Surgical History: Reports: None - HOME MEDS Home Medications: Home Meds Pnv No.122/Iron/Folic Acid [ Multi Tablet] 1 each PO DAILY 01/22/19 [ History] - CURRENT (IN HOUSE) MEDS Current Meds: Current Medications Lactated Ringer's (Ringers, Lactated) 1,000 mls @ 100 mls/hr IV ASDIRECTED [facility] Last Admin: 01/28/19 19:28 Dose: 100 mls/hr Oxytocin/Lactated Ringer's (Pitocin In Lr 10 Units/1,000 Ml) 10 unit in 1,000 mls @ 100 mls/hr IV .CONTINUOUS YONG Oxytocin/Lactated Ringer's (Pitocin In Lr 10 Units/1,000 Ml) 10 unit in 1,000 mls @ 12 mls/hr IV TITRATE YONG; Protocol Last Admin: 01/28/19 19:27 Dose: 2 munits/min, 12 mls/hr Nalbuphine HCl (Nubain) 10 mg IVPUSH Q2H PRN PRN Reason: pain Sodium Chloride (Saline Flush) 10 ml FLUSH ASDIRECTED PRN PRN Reason: Keep Vein Open
[2019-01-28] MEDS ORDERED: Phenylephrine 1 MG in Sodium Chloride 0.9% 10 ML IV SCH (20:15)
[2019-01-28] MEDS ORDERED: Bupivacaine 0.25% 10 ML SDV ONE (22:00)
[2019-01-28] MEDS ORDERED: Lidocaine 1.5% with EPINEPHrine 1:200,000 5 ML Amp ONE (22:00)
--- NOTE | 2019-01-29 02:53 | PCM.LDHP ---
L&D History of Present Illness - General Date of Service: 01/28/19 Admit Problem/Dx: Patient Status Order with Admit Dx/Problem 01/28/19 19:59 Patient Status [ADT] Routine Admission Diagnosis/Problem Admission Diagnosis/Problem Source of Information: Patient, RN Notes Reviewed History Limitations: Reports: No Limitations - History of Present Illness Introduction:: 28 year old at 37w6d here for a labor check. [place] a gush of fluid earlier tonight that soaked her pad and underwear. Here negative amnisure but positive pooling and on examination can feel hair which supports SROM. PNC with myself without complications. Pain Score: 7 - Related Data Allergies/Adverse Reactions: Allergies Allergy/AdvReac Type Severity Reaction Status Date / Time No Known Allergies Allergy Verified 01/22/19 00:37 Home Medications: Home Meds Pnv No.122/Iron/Folic Acid [ Multi Tablet] 1 each PO DAILY 01/22/19 [ History] Past Medical History - Past Health History Medical/Surgical History: Denies Medical/Surgical History HEENT History: Reports: None Other HEENT History: wears glasses Cardiovascular History: Reports: None Respiratory History: Reports: None Gastrointestinal History: Reports: None Genitourinary History: Reports: None Other Genitourinary History: history of chlamydia 2009 [employer] History: Reports: , Other (See Below) Other OB/BYN History: abnormal PAP, possible HPV Musculoskeletal History: Reports: None Neurological History: Reports: None Psychiatric History: Reports: None Endocrine/Metabolic History: Reports: None Hematologic History: Reports: None Immunologic History: Reports: None Oncologic (Cancer) History: Reports: None Dermatologic History: Reports: None - Infectious Disease History Infectious Disease History: Reports: Human Papilloma Virus (HPV) - Past Surgical History Head Surgeries/Procedures: Reports: None HEENT Surgical History: Reports: None Cardiovascular Surgical History: Reports: None Respiratory Surgical History: Reports: None GI Surgical History: Reports: None Female Surgical History: Reports: None Endocrine Surgical History: Reports: None Neurological Surgical History: Reports: None Musculoskeletal Surgical History: Reports: None Dermatological Surgical History: Reports: None Social & Family History - Family History Family Medical History: Noncontributory Cardiac: Reports: Hypertension Other Cardiac Family History: Mother HTN - Tobacco Use Smoking Status *Q: Never Smoker - Caffeine Use Caffeine Use: Reports: None - Recreational Drug Use Recreational Drug Use: No H&P Review of Systems - Review of Systems: Review Of Systems: See Below General: Reports: No Symptoms HEENT: Reports: No Symptoms Pulmonary: Reports: No Symptoms Cardiovascular: Reports: No Symptoms Gastrointestinal: Reports: No Symptoms Genitourinary: Reports: No Symptoms Musculoskeletal: Reports: No Symptoms Skin: Reports: No Symptoms Psychiatric: Reports: No Symptoms Neurological: Reports: No Symptoms Hematologic/Lymphatic: Reports: No Symptoms Immunologic: Reports: No Symptoms L&D Exam - Exam Exam: See Below - Vital Signs Vital Signs: Last Vital Signs Temp 37.3 C 01/28/19 20:07 Pulse 88 01/28/19 20:07 Resp 16 01/28/19 20:07 BP 118/65 01/28/19 20:07 Pulse Ox 99 01/28/19 20:07 Weight: 90.265 kg - OB Specific Contraction Intensity: Moderate to Strong Movement: Active Heart Tones: Present Presentation: Vertex - Villasenor Score Villasenor Score Cervix Position: Midposition Villasenor Score Consistency: Soft Villasenor Score Effacement: >80% Villasenor Score Dilation: 3-4 cm Villasenor Score Infant's Station: -3 Villasenor Score Total: 8 - Exam General: Alert, Oriented HEENT: PERRLA, Conjunctiva Clear, EACs Clear, EOMI, Hearing Intact, Mucosa Moist & [place], Nares Patent, Normal Nasal Septum, Posterior Pharynx Clear, TMs Clear Neck: Supple, Trachea Midline Lungs: Clear to Auscultation, Normal Respiratory Effort Cardiovascular: Regular Rate, Regular Rhythm GI/Abdominal Exam: Normal Bowel Sounds, Soft, Non-Tender, No Organomegaly, No Distention, No Abnormal Bruit, No Mass, Pelvis Stable Rectal Exam: Normal Exam, Normal Rectal Tone Extremities: Normal Inspection, Normal Range of Motion, Non-Tender, No Pedal Edema, Normal Capillary Refill Skin: Warm, Dry, Intact Neurological: Cranial Nerves Intact, Reflexes Equal Bilateral Psychiatric: Alert, Normal Affect, Normal Mood - Patient Data Lab Results Last 24 hrs: Laboratory Results - last 24 hr 01/28/19 01/28/19 01/28/19 Range/Units 17:30 19:19 19:19 WBC 9.48 (3.98-10.04) K/mm3 RBC 4.02 (3.98-5.22) M/mm3 Hgb 12.3 (11.2-15.7) gm/L Hct 36.5 (34.1-44.9) % MCV 90.8 (79.4-94.8) fl MCH 30.6 (25.6-32.2) pg MCHC 33.7 (32.2-35.5) g/dl RDW Std Deviation 43.6 (36.4-46.3) fL Plt Count 208 (182-369) K/mm3 MPV 9.8 (9.4-12.3) fl PT (9.5-12.1) SECONDS INR APTT (24-31) SECONDS Fibrinogen (187-446) mg/dL Membrane Rupture Negative RPR (NONREACTIVE) Blood Type O POSITIVE Gel Antibody Screen Negative 01/28/19 01/29/19 01/29/19 Range/Units 19:19 00:35 00:35 WBC (3.98-10.04) K/mm3 RBC (3.98-5.22) M/mm3 Hgb (11.2-15.7) gm/L Hct (34.1-44.9) % MCV (79.4-94.8) fl MCH (25.6-32.2) pg MCHC (32.2-35.5) g/dl RDW Std Deviation (36.4-46.3) fL Plt Count (182-369) K/mm3 MPV (9.4-12.3) fl PT 10.3 (9.5-12.1) SECONDS INR 0.94 APTT 27 (24-31) SECONDS Fibrinogen 442 (187-446) mg/dL Membrane Rupture RPR Non-reactive (NONREACTIVE) Blood Type Gel Antibody Screen Result Diagrams: 01/28/19 19:19 Problem List Initiated/Reviewed/Updated: Yes Orders Last 24hrs: Active Orders 24 hr Category Date Time Status Patient Status [ADT] Routine ADT 01/28/19 19:59 Active Activity as Tolerated [RC] PFP Care 01/28/19 19:05 Active Communication Order [RC] ASDIRECTED Care 01/28/19 19:05 Active Heart Tones [RC] ASDIRECTED Care 01/28/19 19:05 Active Non Stress Test [RC] PER UNIT ROUTINE Care 01/28/19 19:05 Active Notify Provider [RC] ASDIRECTED Care 01/28/19 20:01 Active Notify Provider [RC] PFP Care 01/28/19 19:05 Active Notify Provider [RC] PRN Care 01/28/19 19:05 Active Oxygen Therapy [RC] ASDIRECTED Care 01/28/19 20:01 Active Peripheral IV Care [RC] . DIRECTED Care 01/28/19 19:05 Active Pulse Oximetry [RC] ASDIRECTED Care 01/28/19 20:01 Active Up ad Paige [RC] ASDIRECTED Care 01/28/19 17:37 Active Vaginal Exam [RC] PRN Care 01/28/19 17:38 Active Vital Signs [RC] PER UNIT ROUTINE Care 01/28/19 19:05 Active Regular Diet [DIET] Diet 01/28/19 Dinner Active Lactated Ringers [Ringers, Lactated] 1,000 ml Med 01/28/19 19:15 Active IV ASDIRECTED Nalbuphine [Nubain] Med 01/28/19 19:04 Active 10 mg IVPUSH Q2H PRN Ondansetron [Zofran] Med 01/28/19 20:01 Active 4 mg IVPUSH ONETIME PRN Oxytocin/Lactated Ringers [Pitocin in LR 10 Units/1,000 Med 01/28/19 19:15 Active ML] 10 unit in 1,000 ml IV .CONTINUOUS Oxytocin/Lactated Ringers [Pitocin in LR 10 Units/1,000 Med 01/28/19 19:15 Active ML] 10 unit in 1,000 ml IV TITRATE Phenylephrine [Segundo-Synephrine] 1 mg Med 01/28/19 20:15 Active Sodium Chloride 0.9% [Normal Saline] 10 ml IV TITRATE Sodium Chloride 0.9% [Saline Flush] Med 01/28/19 19:04 Active 10 ml FLUSH ASDIRECTED PRN ePHEDrine [ePHEDrine sulfate] Med 01/28/19 20:01 Active 5 mg IVPUSH ASDIRECTED PRN fentaNYL [Sublimaze] Med 01/28/19 20:01 Active 100 mcg EPIDUR Q3H PRN fentaNYL/Bupivacaine/NS/PF [qwtweJSM-Vymnn-HX 2 MCG/ML- Med 01/28/19 20:01 Active 0.125%] 100 ml EPIDUR ASDIRECTED PRN Electronic Heart Tones Ext w TOCO [WOMSER] Oth 01/28/19 19:05 Ordered Routine Electronic Heart Tones Internal [WOMSER] Per Unit Oth 01/28/19 19:05 Ordered Routine Peripheral IV Insertion Adult [OM.PC] Routine Oth 01/28/19 19:05 Ordered Resuscitation Status Routine Resus Stat 01/28/19 17:36 Ordered Medication Orders Ephedrine Sulfate (Ephedrine Sulfate) 5 mg IVPUSH ASDIRECTED PRN PRN Reason: Hypotension Fentanyl (Sublimaze) 100 mcg EPIDUR Q3H PRN PRN Reason: Pain Last Admin: 01/28/19 22:00 Dose: 100 mcg Fentanyl/Bupivacaine HCl (Abqavecp-Keuuk-Cq 2 Mcg/Ml-0.125%) 100 ml EPIDUR ASDIRECTED PRN PRN Reason: Pain Last Admin: 01/28/19 22:00 Dose: 100 ml Lactated Ringer's (Ringers, Lactated) 1,000 mls @ 100 mls/hr IV ASDIRECTED YONG Last Admin: 01/28/19 22:28 Dose: 100 mls/hr Infusion: 01/28/19 22:28 Dose: 100 mls/hr Admin: 01/28/19 19:28 Dose: 100 mls/hr Oxytocin/Lactated Ringer's (Pitocin In Lr 10 Units/1,000 Ml) 10 unit in 1,000 mls @ 100 mls/hr IV .CONTINUOUS YONG Oxytocin/Lactated Ringer's (Pitocin In Lr 10 Units/1,000 Ml) 10 unit in 1,000 mls @ 12 mls/hr IV TITRATE YONG; Protocol Last Titration: 01/29/19 02:01 Dose: 4 munits/min, 24 mls/hr Titration: 01/29/19 01:31 Dose: 2 munits/min, 12 mls/hr Titration: 01/29/19 00:29 Dose: 0 munits/min, 0 mls/hr Titration: 01/29/19 00:16 Dose: 18 munits/min, 108 mls/hr Titration: 01/28/19 23:36 Dose: 16 munits/min, 96 mls/hr Titration: 01/28/19 23:06 Dose: 14 munits/min, 84 mls/hr Titration: 01/28/19 22:36 Dose: 12 munits/min, 72 mls/hr Titration: 01/28/19 21:44 Dose: 10 munits/min, 60 mls/hr Titration: 01/28/19 21:10 Dose: 8 munits/min, 48 mls/hr Titration: 01/28/19 20:36 Dose: 6 munits/min, 36 mls/hr Titration: 01/28/19 20:04 Dose: 4 munits/min, 24 mls/hr Admin: 01/28/19 19:27 Dose: 2 munits/min, 12 mls/hr Phenylephrine HCl 1 mg/ Sodium (Chloride) 10.1 mls @ 1 mls/sec IV TITRATE YONG; Protocol Nalbuphine HCl (Nubain) 10 mg IVPUSH Q2H PRN PRN Reason: pain Ondansetron HCl (Zofran) 4 mg IVPUSH ONETIME PRN PRN Reason: Nausea/Vomiting Sodium Chloride (Saline Flush) 10 ml FLUSH ASDIRECTED PRN PRN Reason: Keep Vein Open Assessment/Plan Comment:: 28 year old here with labor. Augment as needed. Anticipate unless otherwise indicated
--- NOTE | 2019-01-29 02:55 | PCM.PNLD ---
Labor Progress Note - VS & Meds Vital Signs: Last Vital Signs Temp 37.3 C 01/28/19 20:07 Pulse 88 01/28/19 20:07 Resp 16 01/28/19 20:07 BP 118/65 01/28/19 20:07 Pulse Ox 99 01/28/19 20:07 Active Medications: Current Medications Ephedrine Sulfate (Ephedrine Sulfate) 5 mg IVPUSH ASDIRECTED PRN PRN Reason: Hypotension Fentanyl (Sublimaze) 100 mcg EPIDUR Q3H PRN PRN Reason: Pain Last Admin: 01/28/19 22:00 Dose: 100 mcg Fentanyl/Bupivacaine HCl (Vzbxxpyr-Wzboi-Te 2 Mcg/Ml-0.125%) 100 ml EPIDUR ASDIRECTED PRN PRN Reason: Pain Last Admin: 01/28/19 22:00 Dose: 100 ml Lactated Ringer's (Ringers, Lactated) 1,000 mls @ 100 mls/hr IV ASDIRECTED YONG Last Admin: 01/28/19 22:28 Dose: 100 mls/hr Oxytocin/Lactated Ringer's (Pitocin In Lr 10 Units/1,000 Ml) 10 unit in 1,000 mls @ 100 mls/hr IV .CONTINUOUS YONG Oxytocin/Lactated Ringer's (Pitocin In Lr 10 Units/1,000 Ml) 10 unit in 1,000 mls @ 12 mls/hr IV TITRATE YONG; Protocol Last Titration: 01/29/19 02:01 Dose: 4 munits/min, 24 mls/hr Phenylephrine HCl 1 mg/ Sodium (Chloride) 10.1 mls @ 1 mls/sec IV TITRATE YONG; Protocol Nalbuphine HCl (Nubain) 10 mg IVPUSH Q2H PRN PRN Reason: pain Ondansetron HCl (Zofran) 4 mg IVPUSH ONETIME PRN PRN Reason: Nausea/Vomiting Sodium Chloride (Saline Flush) 10 ml FLUSH ASDIRECTED PRN PRN Reason: Keep Vein Open - Uterine Contractions Contraction Intensity: Moderate to Strong Uterine Resting Tone: Soft - Monitoring Heart Rate (FHR) Baseline: 135 Heart Rate (FHR) Variability: Moderate (6-25 bmp) Accelerations: Prolonged Accelerations (>2x10 min) Decelerations: Early Strip Review: Category I - Vaginal Exam Dilation (cm): 9 Effacement (Percent): 100 Station: -2 - Labor Progress (Free Text) Labor Progress: Progressing well. Has had some gushes of blood over night. Anticipate
--- NOTE | 2019-01-29 03:41 | PCM.SN ---
- Free Text/Narrative Note: Stage I - patient presented with uterine irritability and probable rupture of membranes. Had moderate amount of bleeding throughout the labor course consistent with small abruption. Progressed to complete with overall reassuring heart tones. Stage II - spontaneous vaginal delivery of viable female weight 2550 grams Apgars 8 and 9 at 0304. Head delivered in controlled manner over intact perineum body and shoulders followed immediately without difficulty. Large gush of bloody amniotic fluid followed baby. Positive cry placed on maternal abdomen cord clamped and cut and to warmer. Stage III - spontaneous vaginal delivery of intact placenta with three-vessel cord estimated blood loss 400 not including bleeding through delivery and labor. No lacerations
[2019-01-29] MEDS ORDERED: Witch Hazel Medicated Pads 40/Jar TOP PRN (09:13)
[2019-01-29] MEDS ORDERED: Docusate Sodium 100 MG Cap PO PRN (09:13)
[2019-01-29] MEDS ORDERED: Benzocaine/Menthol 20%-0.5% Spray 56 GM Canister TOP PRN (09:14)
[2019-01-29] MEDS: Ibuprofen 600 MG Tab PO PRN ×3 (09:28→21:24)
[2019-01-29] MEDS ORDERED: Acetaminophen 325 MG Tab PO PRN (13:40)
[2019-01-30] MEDS: Acetaminophen/oxyCODONE 325-5 MG Tab PO PRN ×2 (00:11→07:41)
[2019-01-30] MEDS: Ibuprofen 600 MG Tab PO PRN (03:58)
[2019-01-30 07:57] VITALS: BP 121/80
--- NOTE | 2019-01-30 09:43 | PCM.DCSUM1 ---
Discharge Summary - Hospital Course Brief History: Admitted in labor. Unremarkable course. Diagnosis: Stroke: No - Discharge Data Discharge Date: 01/30/19 Discharge Disposition: Home, Self-Care 01 Condition: Good - Patient Instructions Diet: Usual Diet as Tolerated Activity: No Strenuous Activities Driving: May Drive Today Showering/Bathing: May Shower Notify Provider of: Fever, Increased Pain, Swelling and Redness, Drainage, Nausea and/or Vomiting - Discharge Plan *PRESCRIPTION DRUG MONITORING PROGRAM REVIEWED*: No *COPY OF PRESCRIPTION DRUG MONITORING REPORT IN PATIENT DEWEY: No Home Medications: Home Meds Pnv No.122/Iron/Folic Acid [ Multi Tablet] 1 each PO DAILY 01/22/19 [ History] Referrals: Daisha Elias MD [Primary Care Provider] - - Discharge Summary/Plan Comment DC Time >30 min.: No - General Info Date of Service: 01/30/19 Functional Status: Reports: Pain Controlled - Review of Systems General: Reports: No Symptoms HEENT: Reports: No Symptoms Pulmonary: Reports: No Symptoms Cardiovascular: Reports: No Symptoms Gastrointestinal: Reports: No Symptoms Genitourinary: Reports: No Symptoms Musculoskeletal: Reports: No Symptoms Skin: Reports: No Symptoms Neurological: Reports: No Symptoms Psychiatric: Reports: No Symptoms - Patient Data Vitals - Most Recent: Last Vital Signs Temp 36.3 C 01/30/19 07:38 Pulse 75 01/30/19 07:38 Resp 16 01/30/19 07:38 BP 121/80 01/30/19 07:38 Pulse Ox 97 01/30/19 07:38 Weight - Most Recent: 90.265 kg I&O - Last 24 hours: Intake & Output 01/29/19 01/30/19 01/30/19 22:59 06:59 14:59 Intake Total 820 Balance 820 Med Orders - Current: Current Medications Acetaminophen (Tylenol) 650 mg PO Q4H PRN PRN Reason: Pain Last Admin: 01/29/19 13:55 Dose: 650 mg Benzocaine/Menthol (Dermoplast Pain Relief [place]) 0 gm TOP ASDIRECTED PRN PRN Reason: Pain Last Admin: 01/29/19 09:28 Dose: 1 applic Docusate Sodium (Colace) 100 mg PO BID PRN PRN Reason: Constipation Last Admin: 01/30/19 00:11 Dose: 100 mg Ibuprofen (Motrin) 600 mg PO Q6H PRN PRN Reason: Mild pain or fever Last Admin: 01/30/19 03:58 Dose: 600 mg Oxycodone/Acetaminophen (Percocet 325-5 Mg) 1 tab PO Q6H PRN PRN Reason: Pain Last Admin: 01/30/19 07:41 Dose: 1 tab Witch Shira (Tucks) 1 pad TOP ASDIRECTED PRN PRN Reason: Pain Last Admin: 01/29/19 09:28 Dose: 1 box Discontinued Medications Ephedrine Sulfate (Ephedrine Sulfate) 5 mg IVPUSH ASDIRECTED PRN PRN Reason: Hypotension Fentanyl (Sublimaze) 100 mcg EPIDUR Q3H PRN PRN Reason: Pain Last Admin: 01/28/19 22:00 Dose: 100 mcg Fentanyl/Bupivacaine HCl (Hewsskmx-Cpbxt-Cq 2 Mcg/Ml-0.125%) 100 ml EPIDUR ASDIRECTED PRN PRN Reason: Pain Last Admin: 01/28/19 22:00 Dose: 100 ml Lactated Ringer's (Ringers, Lactated) 1,000 mls @ 100 mls/hr IV ASDIRECTED YONG Last Admin: 01/28/19 22:28 Dose: 100 mls/hr Oxytocin/Lactated Ringer's (Pitocin In Lr 10 Units/1,000 Ml) 10 unit in 1,000 mls @ 100 mls/hr IV .CONTINUOUS YONG Last Admin: 01/29/19 04:21 Dose: 100 mls/hr Oxytocin/Lactated Ringer's (Pitocin In Lr 10 Units/1,000 Ml) 10 unit in 1,000 mls @ 12 mls/hr IV TITRATE YONG; Protocol Last Titration: 01/29/19 03:05 Dose: 500 mls/hr Phenylephrine HCl 1 mg/ Sodium (Chloride) 10.1 mls @ 1 mls/sec IV TITRATE YONG; Protocol Nalbuphine HCl (Nubain) 10 mg IVPUSH Q2H PRN PRN Reason: pain Ondansetron HCl (Zofran) 4 mg IVPUSH ONETIME PRN PRN Reason: Nausea/Vomiting Sodium Chloride (Saline Flush) 10 ml FLUSH ASDIRECTED PRN PRN Reason: Keep Vein Open - Exam General: Reports: Alert, Oriented HEENT: Reports: Pupils Equal, Pupils Reactive, EOMI, Mucous Membr. Moist/[place] Neck: Reports: Supple Lungs: Reports: Clear to Auscultation, Normal Respiratory Effort Cardiovascular: Reports: Regular Rate, Regular Rhythm GI/Abdominal Exam: Normal Bowel Sounds, Soft, Non-Tender, No Organomegaly, No Distention, No Abnormal Bruit, No Mass, Pelvis Stable Back Exam: Reports: Normal Inspection, Full Range of Motion Extremities: Normal Inspection, Normal Range of Motion, Non-Tender, No Pedal Edema, Normal Capillary Refill Skin: Reports: Warm, Dry, Intact Wound/Incisions: Reports: Healing Well Neurological: Reports: No New Focal Deficit Psy/Mental Status: Reports: Alert, Normal Affect, Normal Mood
== END 2019-01-30 10:00 | disposition home or self-care (01) | DRG 560 ==
LOC: JD.OBCHECK 17:12 → JD.OB 17:12 → JD.OBCHECK 19:59 → OBSVTOIN 01-29 03:04 → JD.OB 01-29 03:05
PROVIDERS: ADMIT Obstetrics & Gynecology; ATTEND Obstetrics & Gynecology
PROC: 00HU33Z Insertion of Infusion Device into Spinal Canal, Percutaneous Approach (ICD-10-PCS; 2019-01-28)
PROC: 3E0R3BZ Introduction of Anesthetic Agent into Spinal Canal, Percutaneous Approach (ICD-10-PCS; 2019-01-28)
PROC: 10E0XZZ Delivery of Products of Conception, External Approach (ICD-10-PCS; principal; 2019-01-29)
DX: O45.93 Premature separation of placenta, unspecified, third trimester (principal); O98.32 Other infections with a predominantly sexual mode of transmission complicating childbirth; A63.0 Anogenital (venereal) warts; Z3A.37 37 weeks gestation of pregnancy; Z37.0 Single live birth
CPT/HCPCS: 01967; 36415; 51702; 59025; 59409; 84112; 85027; 85384; 85610; 85730; 86592; 86850; 86900; 86901; A9270-GY; J2590; J3010; J3490; J7120

== ENCOUNTER 2021-11-25 06:53 | Inpatient (IN) | payer BC ==
[~2021-11-25 06:53] MED LIST: Lidocaine 1.5% with EPINEPHrine 1:200,000 5 ML Amp ONE
[2021-11-25] MEDS ORDERED: FLU Vacc QS2021-22 36MOS UP/PF 60 MCG/0.5 ML Syringe IM ONE (08:15)
[2021-11-25] MEDS ORDERED: Nalbuphine 10 MG/1 ML Vial IVPUSH PRN (08:25)
[2021-11-25] MEDS ORDERED: Sodium Chloride 0.9% 10 ML Syringe FLUSH PRN (08:25)
[2021-11-25] MEDS ORDERED: Lidocaine 1% 50 ML MDV INJECT ONE (08:25)
[2021-11-25] MEDS ORDERED: Oxytocin/Lactated Ringers 10 UNIT/1,000 ML BAG IV SCH ×2 (08:30)
[2021-11-25] MEDS ORDERED: Sodium Chloride 0.9% 10 ML Syringe FLUSH SCH (09:00)
[2021-11-25] MEDS: Lactated Ringers 1,000 ML IV SCH ×2 (11:11→13:13)
[2021-11-25] MEDS ORDERED: diphenhydrAMINE 50 MG/ML SDV IVPUSH PRN (11:47)
[2021-11-25] MEDS ORDERED: ePHEDrine 50 MG/ML SDV IVPUSH PRN (11:47)
[2021-11-25] MEDS ORDERED: Bupivacaine/fentaNYL/NS 100 ML Bag EPIDUR PRN (11:47)
[2021-11-25] MEDS ORDERED: fentaNYL 100 MCG/2 ML SDV EPIDUR PRN (11:47)
[2021-11-25] MEDS ORDERED: Misoprostol 200 MCG Tab ONE (15:59)
[2021-11-25] MEDS ORDERED: Misoprostol 200 MCG Tab PO ONE (16:09)
[2021-11-25] MEDS ORDERED: Benzocaine/Menthol 20%-0.5% Spray 78 GM Cannister TOP PRN (18:43)
[2021-11-25] MEDS ORDERED: Witch Hazel Medicated Pads 40/Jar TOP PRN (18:43)
[2021-11-25] MEDS ORDERED: Acetaminophen 325 MG Tab PO PRN (18:43)
[2021-11-25] MEDS ORDERED: Ibuprofen 600 MG Tab PO PRN (18:43)
[2021-11-26 14:49] VITALS: BP 122/63; PULSE 86
== END 2021-11-26 16:30 | disposition home or self-care (01) | DRG 560 ==
LOC: JD.OB 06:53 → OBSVTOIN 15:53 → JD.OB 15:54
PROVIDERS: ADMIT Obstetrics & Gynecology; ATTEND Obstetrics & Gynecology
PROC: 10E0XZZ Delivery of Products of Conception, External Approach (ICD-10-PCS; principal; 2021-11-25)
PROC: 3E0P7VZ Introduction of Hormone into Female Reproductive, Via Natural or Artificial Opening (ICD-10-PCS; 2021-11-25)
PROC: 10907ZC Drainage of Amniotic Fluid, Therapeutic from Products of Conception, Via Natural or Artificial Opening (ICD-10-PCS; 2021-11-25)
PROC: 3E033VJ Introduction of Other Hormone into Peripheral Vein, Percutaneous Approach (ICD-10-PCS; 2021-11-25)
PROC: 3E0R3BZ Introduction of Anesthetic Agent into Spinal Canal, Percutaneous Approach (ICD-10-PCS; 2021-11-25)
DX: O80 Encounter for full-term uncomplicated delivery (principal); Z3A.39 39 weeks gestation of pregnancy; Z37.0 Single live birth; Z64.1 Problems related to multiparity; Z20.822 Contact with and (suspected) exposure to COVID-19
CPT/HCPCS: 01967; 36415; 51702; 59025; 59409; 85025; 86592; 86850; 86900; 86901; A9270-GY; J2590; J3010; J7120; U0002